=== PATIENT | male | born 1955 | race Caucasian/White ===

== ENCOUNTER 2016-11-25 16:37 | Emergency (ER) | payer OTHER ==
--- NOTE | 2016-11-25 17:14 | ED CLINICAL REPORT ---
Clinical Report - Physicians/Mid Levels [facility] [address] [place] [address] 11/25/2016 16:41 Patient: JULIO PEREZ Time Seen: 17:00; initial patient contact, initial documentation, patient care assumed. Arrived- By private vehicle. Historian- patient. HISTORY OF PRESENT ILLNESS Chief Complaint: COUGH and SORE THROAT. This started yesterday and is still present. The illness is described as mild. The patient has had a cough, a sore throat, nasal congestion, sinus pressure and sinus drainage. He has had muscle aches and a nasal discharge. Additional history - The patient has had contact with a sick family member. Symptoms of the sick contact include fever and cough. They have had similar symptoms. No recent travel. Similar symptoms previously: None. Recent medical care: Not recently seen/assessed. REVIEW OF SYSTEMS The patient has had a headache. All systems otherwise negative, except as recorded above. PAST HISTORY See nurses notes. PROBLEMS: Arthritis. Degenerative Joint Disease. --16:53 Win Klein R.N. ADDITIONAL SURGERIES: no known surgeries. SOCIAL HISTORY Light tobacco smoker. Occasional alcohol use. Not exposed to second-hand smoke at home. No drug use. No recent travel. Is a local resident. FAMILY HISTORY Negative. ADDITIONAL NOTES The nursing notes have been reviewed with agreement regarding the chief complaint, HPI, ROS, PMH and patient medications and allergies. PHYSICAL EXAM Vital Signs: 11/25/2016 16:51 BP: 154/82. HR: 123. RR: 20. O2 saturation: 100%. Temp: 98.1 F. Have been reviewed as abnormal and appear to be correct. Blood pressure normal. Tachycardic. Respiratory rate normal. Temperature normal. Oxygen saturation normal. Appearance: Alert. No acute distress. Eyes: Pupils equal, round and reactive to light. Eyes normal inspection. ENT: Ears normal. Nose normal. Pharynx normal. Uvula midline. Neck: Normal inspection. Neck supple. CVS: Heart rate / rhythm abnormal. Tachycardia (ventricular rate = 120). Heart sounds normal. Pulses normal. Respiratory: No respiratory distress. Breath sounds normal. Abdomen: Soft and nontender. No organomegaly. Back: Normal inspection. Skin: Skin warm and dry. Normal skin color. No rash. Normal skin turgor. Extremities: Extremities exhibit normal ROM. No lower extremity edema. Neuro: Oriented X 3. No motor deficit. No sensory deficit. PROGRESS AND PROCEDURES Patient counseled in person regarding the patient's stable condition and diagnosis. 17:13. Differential Diagnosis: Other possible considerations: uri, viral illness, flu, sinusitis, bronchitis, pneumonia. Above considerations are based on history and physical exam. Differential diagnosis was discussed with patient. Disposition: Discharged home in good and unchanged condition (17:14). Condition: good and stable. CLINICAL IMPRESSION Acute viral rhinitis and sinusitis. No airway obstruction. INSTRUCTIONS Alternate Tylenol (Acetaminophen) and Motrin (Ibuprofen) for fever, temperature greater than 101 degrees. Take according to label instructions. Drink plenty of fluids for the next 24 hours until better. Warnings: GENERAL WARNINGS: Return or contact your physician immediately if your condition worsens or changes unexpectedly, if not improving as expected, or if other problems arise. Specifically return if problem worsens. Follow-up: Follow up with your doctor in about five days as needed. Call for an appointment. Summary of care provided to patient. Understanding of the discharge instructions verbalized by patient. (Electronically signed by Lauren Hutchison A.R.N.P. 11/25/2016 19:04)
--- NOTE | 2016-11-25 17:14 | ED NURSING NOTES ---
Clinical Report - Nurses [facility] [address] [place] [address] 11/25/2016 16:41 [id number] Triage time 16:51 Nov 25 2016. Acuity: LEVEL 3. Chief Complaint: COUGH, RUNNY NOSE and SORE THROAT. ODETTE COMA SCORE: [place] Coma Scale: 15- eyes open spontaneously (4); best verbal response- oriented x 4 (5); best motor response- obeys commands (6). --16:56 Win Klein R.N. 16:51 11/25/16. BP: 154/82. HR: 123. RR: 20. O2 saturation: 100%. Temp: 98.1 F. Pain level now 8/10. --16:56 Win Klein R.N. Weight: 90.7 kg stated. Height/Length: 108 inches Per Patient. BMI: 12.1. --16:56 Win Klein R.N. Medications None. --16:52 Win Klein R.N. Allergies No Known Drug Allergy. --16:52 Win Klein R.N. History Arrived by private vehicle. Historian: patient. Accompanied by family. This started yesterday. He has had a watery nasal discharge, fatigue, a headache and sinus pain. Reports muscle aches. No chills, photophobia, difficulty breathing or chest congestion. PAST MEDICAL HX: The patient has had contact with a sick friend. He has had recent travel- (no). SOCIAL HX: Current every day light tobacco smoker (cigarette)- less than 1/2 a pack per day. Occasional alcohol use; consumes two beers a week. No drug use. SELF HARM ASSESSMENT: A self harm assessment was performed. The patient answered "no" to the question "Have you recently felt down, depressed, or hopeless?" and "Do you have thoughts of harming or killing yourself?". FALL RISK ASSESSMENT: Fall risk assessment completed. No fall risk identified. NUTRITIONAL RISK ASSESSMENT: The nutritional risk assessment revealed no deficiencies. FUNCTIONAL ASSESSMENT: Functional assessment: no impairments noted. LEARNING NEEDS ASSESSMENT: The learning needs assessment revealed no barriers. ABUSE ASSESSMENT: Abuse assessment: (yes) The patient was asked "Do you feel safe in your home?". SKIN INTEGRITY ASSESSMENT: Skin integrity risk assessment completed. No skin integrity risk identified. --16:56 Win Klein R.N. PROBLEMS: Arthritis. Degenerative Joint Disease. --16:53 Win Klein R.N. ADDITIONAL SURGERIES: no known surgeries. Interventions ID and allergy band on patient. --16:56 Win Klein R.N. PHYSICAL ASSESSMENT Ambulatory to room. GENERAL / NEURO / PSYCH: Alert. Oriented X 4. Appears in no acute distress. HEENT: Sinus tenderness present. Runny nose. Mouth within normal limits upon inspection. Pharynx within normal limits. Mucous membranes are pink. RESPIRATORY: Respirations not labored. Breath sounds within normal limits. CVS: Normal sinus rhythm noted. Capillary refill less than 2 seconds. SKIN: Skin is warm and dry. Normal skin turgor. --16:57 Win Klein R.N. NURSING PROGRESS NOTES Pulse oximeter and NIBP monitor placed on patient. Reassurance given. Call light placed in reach. Side rails up x 1. Bed placed in lowest position. Brakes of bed on. --16:57 Win Klein R.N. DISPOSITION / DISCHARGE Departure time: 17:20 Nov 25 2016. Condition at departure: improved. No learning barriers present. Discharge instructions provided and reviewed with the patient. Reviewed warnings. Reviewed medication(s). Treatments reviewed. Reviewed referrals. Verbalized understanding. Written instructions provided in Afghan. The patient was discharged home and accompanied by spouse. He left the Emergency Department ambulatory and via private vehicle. Spouse driving. --17:20 Win Klein R.N. 16:51 11/25/16. BP: 154/82. HR: 123. RR: 20. O2 saturation: 100%. Temp: 98.1 F. Pain level now 8/10. --17:20 Win Klein R.N. Locked/Released at 11/25/2016 19:11 by Win Klein R.N.
--- NOTE | 2016-11-25 17:14 | ED NURSING NOTES ---
Clinical Report - Nurses [facility] [address] [place] [address] 11/25/2016 16:41 [id number] Triage time 16:51 Nov 25 2016. Acuity: LEVEL 3. Chief Complaint: COUGH, RUNNY NOSE and SORE THROAT. ODETTE COMA SCORE: [place] Coma Scale: 15- eyes open spontaneously (4); best verbal response- oriented x 4 (5); best motor response- obeys commands (6). --16:56 Win Klein R.N. 16:51 11/25/16. BP: 154/82. HR: 123. RR: 20. O2 saturation: 100%. Temp: 98.1 F. Pain level now 8/10. --16:56 Win Klein R.N. Weight: 90.7 kg stated. Height/Length: 108 inches Per Patient. BMI: 12.1. --16:56 Win Klein R.N. Medications None. --16:52 Win Klein R.N. Allergies No Known Drug Allergy. --16:52 Win Klein R.N. History Arrived by private vehicle. Historian: patient. Accompanied by family. This started yesterday. He has had a watery nasal discharge, fatigue, a headache and sinus pain. Reports muscle aches. No chills, photophobia, difficulty breathing or chest congestion. PAST MEDICAL HX: The patient has had contact with a sick friend. He has had recent travel- (no). SOCIAL HX: Current every day light tobacco smoker (cigarette)- less than 1/2 a pack per day. Occasional alcohol use; consumes two beers a week. No drug use. SELF HARM ASSESSMENT: A self harm assessment was performed. The patient answered "no" to the question "Have you recently felt down, depressed, or hopeless?" and "Do you have thoughts of harming or killing yourself?". FALL RISK ASSESSMENT: Fall risk assessment completed. No fall risk identified. NUTRITIONAL RISK ASSESSMENT: The nutritional risk assessment revealed no deficiencies. FUNCTIONAL ASSESSMENT: Functional assessment: no impairments noted. LEARNING NEEDS ASSESSMENT: The learning needs assessment revealed no barriers. ABUSE ASSESSMENT: Abuse assessment: (yes) The patient was asked "Do you feel safe in your home?". SKIN INTEGRITY ASSESSMENT: Skin integrity risk assessment completed. No skin integrity risk identified. --16:56 Win Klein R.N. PROBLEMS: Arthritis. Degenerative Joint Disease. --16:53 Win Klein R.N. ADDITIONAL SURGERIES: no known surgeries. Interventions ID and allergy band on patient. --16:56 Win Klein R.N. PHYSICAL ASSESSMENT Ambulatory to room. GENERAL / NEURO / PSYCH: Alert. Oriented X 4. Appears in no acute distress. HEENT: Sinus tenderness present. Runny nose. Mouth within normal limits upon inspection. Pharynx within normal limits. Mucous membranes are pink. RESPIRATORY: Respirations not labored. Breath sounds within normal limits. CVS: Normal sinus rhythm noted. Capillary refill less than 2 seconds. SKIN: Skin is warm and dry. Normal skin turgor. --16:57 Win Klein R.N. NURSING PROGRESS NOTES Pulse oximeter and NIBP monitor placed on patient. Reassurance given. Call light placed in reach. Side rails up x 1. Bed placed in lowest position. Brakes of bed on. --16:57 Win Klein R.N. DISPOSITION / DISCHARGE Departure time: 17:20 Nov 25 2016. Condition at departure: improved. No learning barriers present. Discharge instructions provided and reviewed with the patient. Reviewed warnings. Reviewed medication(s). Treatments reviewed. Reviewed referrals. Verbalized understanding. Written instructions provided in Ivorian. The patient was discharged home and accompanied by spouse. He left the Emergency Department ambulatory and via private vehicle. Spouse driving. --17:20 Win Klein R.N. 16:51 11/25/16. BP: 154/82. HR: 123. RR: 20. O2 saturation: 100%. Temp: 98.1 F. Pain level now 8/10. --17:20 Win Klein R.N. Locked/Released at 11/25/2016 19:11 by Win Klein R.N.
--- NOTE | 2016-11-25 19:11 | ED DISCHARGE INSTRUCTIONS ---
Patient: JULIO PEREZ General Instructions [facility] VisitID: [id number] [place] [address] 60y, M Registration Date/Time: 11/25/2016 Acute viral rhinitis and sinusitis. No airway obstruction. INSTRUCTIONS Alternate Tylenol (Acetaminophen) and Motrin (Ibuprofen) for fever, temperature greater than 101 degrees. Take according to label instructions. Drink plenty of fluids for the next 24 hours until better. Warnings: GENERAL WARNINGS: Return or contact your physician immediately if your condition worsens or changes unexpectedly, if not improving as expected, or if other problems arise. Specifically return if problem worsens. Follow-up: Follow up with your doctor in about five days as needed. Call for an appointment. Summary of care provided to patient. Understanding of the discharge instructions verbalized by patient. ADDITIONAL INFORMATION Viral Respiratory Illness [Adult] You have an Upper Respiratory Illness (URI) caused by a virus. This illness is contagious during the first few days. It is spread through the air by coughing and sneezing or by direct contact (touching the sick person and then touching your own eyes, nose or mouth). Most viral illnesses go away within 7-10 days with rest and simple home remedies. Sometimes, the illness may last for several weeks. Antibiotics will not kill a virus and are generally not prescribed for this condition. Home Care: 1) If symptoms are severe, rest at home for the first 2-3 days. When you resume activity, don't let yourself get too tired. 2) Avoid being exposed to cigarette smoke (yours or others). 3) Tylenol (acetaminophen) or ibuprofen (Advil, Motrin) will help fever, muscle aching and headache. (Persons under 18 with fever should not take aspirin since this may cause liver damage.) 4) Your appetite may be poor, so a light diet is fine. Avoid dehydration by drinking 6-8 glasses of fluids per day (water, soft drinks, juices, tea, soup). Extra fluids will help loosen secretions in the nose and lungs. 5) Oxld-iyd-drwslkj cold medicines will not shorten the length of time youre sick, but they may be helpful for the following symptoms: cough (Robitussin DM); sore throat (Chloraseptic lozenges or spray); nasal and sinus congestion (Actifed, Sudafed, Chlortrimeton). Follow Up with your doctor or as advised if you dont improve over the next week. Get Prompt Medical Attention if any of the following occur: -- Cough with lots of colored sputum (mucus) or blood in your sputum -- Chest pain, shortness of breath, wheezing or have trouble breathing -- Severe headache; face, neck or ear pain -- Fever over 100.4 F (38.0 C) for more than three days -- You cant swallow due to throat pain Fever Control (Adult) A fever is a natural reaction of the body to an illness. In most cases, the temperature itself is not harmful. It actually helps the body fight infections. A fever does not need to be treated unless you feel very uncomfortable. Home Care If you feel warm, check your temperature. If you feel very uncomfortable and your temperature is at or higher than 100.4F (38C) oral, you may take acetaminophen (Tylenol) every 4 to 6 hours. If you cant take or keep down oral medicine, ask your pharmacist for Tylenol suppositories, which you can get without a prescription. If the fever does not respond to acetaminophen within 1 hour, take ibuprofen (Advil or Motrin). If this works, keep taking the ibuprofen every 6 to 8 hours. Note: If you have chronic liver or kidney disease or ever had a stomach ulcer or GI bleeding, talk with your doctor before using these medications. If either medication alone does not keep the fever down, you may alternate the two medicines every 3 to 4 hours, only if your healthcare provider has instructed you to do so. For example, take Motrin then wait 3 hours, take Tylenol then wait 3 hours, take Motrin, and so on. Follow your healthcare providers instructions exactly. Clothing: Keep clothing light because excess body heat is lost through the skin. The fever will go up if you wear extra layers or wrap in blankets. Fluids: Fever causes the body to lose water through evaporation. Drink plenty of fluids such as water, juice, clear sodas, maira kain, or lemonade. Do not use aspirin in anyone under 18 years of age who is ill with a fever. It can cause severe liver damage. Follow Up with your doctor or as advised by our staff if you do not get better after 48 hours. Get Prompt Medical Attention if any of the following occur: Fever does not get better after taking fever medication Fast or difficult breathing Earache, sinus pain, stiff or painful neck, headache, repeated diarrhea or vomiting You feel unusually irritable, drowsy, or confused A rash appears You feel weak or dizzy, or that you might faint You have been given the following additional information: Uri, Viral, No Abx (Adult) Fever Control (Adult) (Electronically signed by Lauren Hutchison A.R.N.P. 11/25/2016 19:04)
--- NOTE | 2016-11-25 19:12 | ED MAR SUMMARY ---
..... Medication Administration Record [facility] [address], [place] [id number] Patient: JULIO PEREZ Visit ID: [id number] 60y, M Weight: 90.7 kg Height/Length: 108 in BMI: 12.1 ALLERGIES: No Known Drug Allergy
--- NOTE | 2016-11-25 19:12 | ED MED RECONCILIATION SUMMARY ---
Patient: JULIO PEREZ Medication Reconciliation Report [facility] VisitID: [id number] [address] [place] [address] 60y, M Registration Date/Time: 11/25/2016 Weight: 90.7 kg Height/Length: 108 in. BMI: 12.1 ALLERGIES: No Known Drug Allergy The patient's Home Medications are listed below: NONE. The source(s) of the original Home Medication information: Not obtained. The following Medications were given to the patient in the Emergency Department: None. The following Medications were prescribed to the patient: None.
--- NOTE | 2016-11-25 19:12 | ED MAR SUMMARY ---
..... Medication Administration Record [facility] [address] [place], [place] [id number] Patient: JULIO PEREZ Visit ID: [id number] 60y, M Weight: 90.7 kg Height/Length: 108 in BMI: 12.1 ALLERGIES: No Known Drug Allergy
--- NOTE | 2016-11-25 19:12 | ED MED RECONCILIATION SUMMARY ---
Patient: JULIO PEREZ Medication Reconciliation Report [facility] VisitID: [id number] [address] [place] [address] 60y, M Registration Date/Time: 11/25/2016 Weight: 90.7 kg Height/Length: 108 in. BMI: 12.1 ALLERGIES: No Known Drug Allergy The patient's Home Medications are listed below: NONE. The source(s) of the original Home Medication information: Not obtained. The following Medications were given to the patient in the Emergency Department: None. The following Medications were prescribed to the patient: None.
== END 2016-11-25 17:25 | disposition home or self-care (01) ==
LOC: ED SRH 16:37
DX: J00 Acute nasopharyngitis [common cold] (principal); J01.90 Acute sinusitis, unspecified; B97.89 Other viral agents as the cause of diseases classified elsewhere; F17.210 Nicotine dependence, cigarettes, uncomplicated